=== PATIENT | female | born 1955 | race Caucasian/White ===

== ENCOUNTER 2025-06-21 12:51 | Emergency (ER) | payer BC ==
[~2025-06-21] VITALS: Ht 157.5 cm; Wt 66.0 kg
[2025-06-21 12:52] VITALS: BP 157/80; PULSE 80; RESP 16; TEMP 37.1; O2SAT 96; O2SAT 97
[2025-06-21] MEDS ORDERED: ACET-2708 MT (15:39)
[2025-06-27] MEDS ORDERED: ATOR20TA PO (12:44)
== END 2025-06-21 15:57 | disposition home or self-care (01) ==
LOC: ER 12:51
DX: M71.22 Synovial cyst of popliteal space [Baker], left knee (principal); M06.9 Rheumatoid arthritis, unspecified
CPT/HCPCS: 73564; 93971; 99284